=== PATIENT | female | born 1960 | race Two or more races ===

== ENCOUNTER 2021-10-07 14:31 | Emergency (ER) | payer MEDICAID, OTHER ==
[~2021-10-07] VITALS: Ht 154.9 cm; Wt 92.1 kg
[2021-10-07] MEDS ORDERED: SODIUM CHLORIDE 0.9% 1,000 ML IV ONE (14:45)
[2021-10-07 15:27] LABS: Albumin 3.9 g/dL (3.4-5.0); Calcium 9.4 mg/dL (8.5-10.1); Potassium 4.7 mmol/L (3.5-5.1)
[2021-10-07 15:29] LABS: BUN/Creatinine Ratio 19.5
[2021-10-07 15:32] LABS: Bilirubin, Total 0.3 mg/dL (0.2-1.0); Total Protein 7.6 g/dL (6.4-8.2)
[2021-10-07 15:47] LABS: Basophils # (auto) 0.1 10 ^3/uL (0-0.2); Eosinophils # (auto) 0.5 10 ^3/uL (0-0.8); Eosinophils % (auto) 3.5 % (0.0-7.0); Hematocrit 40.1 % (36.0-46.0); Hemoglobin 12.4 g/dL (12.2-16.2); Lymphocytes # (auto) 4.2 10 ^3/uL (0.4-5.4); Lymphocytes % (auto) 29.4 % (10.0-50.0); Mean Corpuscular Hemoglobin 24.1 pg (28.0-32.0); Mean Corpuscular Hgb Conc. 30.9 g/dL (32.0-36.0); Monocytes # (auto) 1.1 10 ^3/uL (0-1.3); Monocytes % (auto) 7.8 % (0.0-12.0); Neutrophils # (auto) 8.3 10 ^3/uL (1.6-8.6); Neutrophils % (auto) 58.3 % (37.0-80.0); Red Blood Cells 5.14 10^6/uL (4.0-5.20); Red Cell Distribution Width 16.9 % (11.8-14.3); White Blood Cell 14.2 10^3/uL (4.4-10.8)
[2021-10-07] MEDS ORDERED: cefTRIAXone 1GM/50ML D5W 50 ML IV ONE (20:15)
[2021-10-07 23:00] VITALS: BP 153/57
== END 2021-10-07 23:18 | disposition home or self-care (01) ==
LOC: ER 14:31
DX: E86.0 Dehydration (principal); E11.65 Type 2 diabetes mellitus with hyperglycemia; I10 Essential (primary) hypertension
CPT/HCPCS: 36415; 80053; 82962; 83036; 84484; 85025; 93005

== ENCOUNTER 2022-01-15 12:03 | Inpatient (IN) | payer MEDICAID ==
[~2022-01-15] VITALS: Ht 154.9 cm; Wt 89.9 kg
[2022-01-15 12:51] LABS: Eosinophils # (auto) 0.2 10 ^3/uL (0-0.8); Eosinophils % (auto) 1.9 % (0.0-7.0); Lymphocytes # (auto) 2.1 10 ^3/uL (0.4-5.4); Lymphocytes % (auto) 19.3 % (10.0-50.0); Monocytes # (auto) 0.6 10 ^3/uL (0-1.3)
[2022-01-15 12:57] LABS: Basophils # (auto) 0.1 10 ^3/uL (0-0.2); Basophils % (auto) 1.2 % (0.0-2.0); Hematocrit 36.5 % (36.0-46.0); Hemoglobin 11.4 g/dL (12.2-16.2); Mean Corpuscular Hemoglobin 25.2 pg (28.0-32.0); Mean Corpuscular Hgb Conc. 31.2 g/dL (32.0-36.0); Mean Corpuscular Volume 80.5 fL (80.0-100.0); Monocytes % (auto) 5.7 % (0.0-12.0); Neutrophils # (auto) 7.9 10 ^3/uL (1.6-8.6); Neutrophils % (auto) 71.9 % (37.0-80.0); Red Blood Cells 4.53 10^6/uL (4.0-5.20); Red Cell Distribution Width 15.2 % (11.8-14.3)
[2022-01-15 13:09] LABS: Albumin 3.3 g/dL (3.4-5.0); BUN/Creatinine Ratio 18.5; Potassium 4.9 mmol/L (3.5-5.1)
[2022-01-15 13:12] LABS: Bilirubin, Total 0.2 mg/dL (0.2-1.0); Total Protein 6.6 g/dL (6.4-8.2)
[2022-01-15 13:42] LABS: Urine Bacteria FEW /hpf (None Seen); Urine Blood Negative /uL (Negative); Urine Mucus FEW (None Seen); Urine Specific Gravity 1.022 (1.001-1.035); Urine WBC 2 /hpf (0 - 5)
[2022-01-15] MEDS ORDERED: cloNIDine HCL 0.1 MG TAB PO ONE (13:45)
[2022-01-15] MEDS ORDERED: MECLIZINE HCL 25 MG TAB PO ONE (13:45)
[2022-01-15] MEDS ORDERED: ENOXAPARIN SOD 100 MG/1 ML SYRINGE SC ONE (13:45)
[2022-01-15] MEDS ORDERED: ASPirin 81 mg TAB PO ONE (13:45)
[2022-01-15] MEDS ORDERED: NITROGLYCERIN 0.4 MG SL TAB SL PRN (14:45)
[2022-01-15] MEDS ORDERED: MORPHINE SULFATE INJ 2 MG/ml SYRG IV PRN (14:45)
[2022-01-15] MEDS ORDERED: cefTRIAXone 1GM/50ML D5W 50 ML IV ONE (15:00)
[2022-01-15] MEDS ORDERED: hydrALAZINE HCL 20 MG/ML VL IV PRN (15:00)
[2022-01-15] MEDS ORDERED: DEXTROSE (50%) 50ML SYRG IV PRN (15:00)
[2022-01-15 15:35] LABS: Cholesterol 185 mg/dL (< 200)
[2022-01-15 15:37] LABS: HDL Cholesterol 56 mg/dL (40-59); LDL Cholesterol 121 mg/dL (< 100); Triglycerides 93 mg/dL (< 150)
[2022-01-15] MEDS: InsuLIN REG 1unit/0.01ml Soln (100units/ml) SC SCH ×2 (17:54→21:56)
[2022-01-15] MEDS: ACCU-CHEK COMFORT CURVE STRIP VI SCH ×2 (17:56→21:52)
[2022-01-15] MEDS ORDERED: NTG 0.1MG/HR TOPICAL PATCH TD ONE (18:00)
[2022-01-15] MEDS ORDERED: PANTOPRAZOLE 40 MG/10 ML VIAL INJ IV ONE (18:00)
[2022-01-15] MEDS: ATORVASTATIN 20 MG TAB PO SCH (21:56)
[2022-01-16] VITALS (7 sets, daily range): BP systolic 106–123; BP diastolic 44–68
[2022-01-16] MEDS ORDERED: OMEP20TA PO (01:16)
[2022-01-16] MEDS ORDERED: GABA300C PO (01:16)
[2022-01-16] MEDS ORDERED: GLIP10TA9 PO (01:16)
[2022-01-16] MEDS ORDERED: LEVO175T66 PO (01:16)
[2022-01-16] MEDS ORDERED: FERR-20 PO (01:16)
[2022-01-16] MEDS ORDERED: LEVEMIR SC (01:16)
[2022-01-16] MEDS ORDERED: METF-370 PO (01:16)
[2022-01-16] MEDS ORDERED: LISI-716 PO (01:16)
[2022-01-16 05:36] LABS: Basophils # (auto) 0 10 ^3/uL (0-0.2); Neutrophils % (auto) 46.3 % (37.0-80.0); Nucleated Red Blood Cells % 0.1 %
[2022-01-16 05:37] LABS: Basophils % (auto) 0.3 % (0.0-2.0); Eosinophils # (auto) 0.4 10 ^3/uL (0-0.8); Eosinophils % (auto) 2.9 % (0.0-7.0); Hematocrit 34.9 % (36.0-46.0); Hemoglobin 10.9 g/dL (12.2-16.2); Lymphocytes # (auto) 4.8 10 ^3/uL (0.4-5.4); Lymphocytes % (auto) 39.4 % (10.0-50.0); Mean Corpuscular Hgb Conc. 31.3 g/dL (32.0-36.0); Mean Corpuscular Volume 79.9 fL (80.0-100.0); Monocytes # (auto) 1.3 10 ^3/uL (0-1.3); Monocytes % (auto) 11.1 % (0.0-12.0); Neutrophils # (auto) 5.6 10 ^3/uL (1.6-8.6); Red Blood Cells 4.37 10^6/uL (4.0-5.20); Red Cell Distribution Width 15.3 % (11.8-14.3); White Blood Cell 12.1 10^3/uL (4.4-10.8)
[2022-01-16 06:01] LABS: Albumin 2.9 g/dL (3.4-5.0); BUN/Creatinine Ratio 15.3; Bilirubin, Total 0.2 mg/dL (0.2-1.0); Total Protein 6.3 g/dL (6.4-8.2)
[2022-01-16] MEDS: ACCU-CHEK COMFORT CURVE STRIP VI SCH ×4 (06:41→22:09)
[2022-01-16] MEDS: InsuLIN REG 1unit/0.01ml Soln (100units/ml) SC SCH ×4 (06:41→22:25)
[2022-01-16] MEDS: cefTRIAXone 1GM/50ML D5W 50 ML IV SCH (08:49)
[2022-01-16] MEDS: PANTOPRAZOLE 40 MG/10 ML VIAL INJ IV SCH (09:46)
[2022-01-16] MEDS: ENOXAPARIN SOD 40 MG/0.4 ML SYRINGE SC SCH (09:46)
[2022-01-16] MEDS: ASPirin 81 mg TAB PO SCH (09:46)
[2022-01-16] MEDS: ATORVASTATIN 20 MG TAB PO SCH (22:09)
[2022-01-17 05:00] VITALS: BP 126/54
[2022-01-17] MEDS: ACCU-CHEK COMFORT CURVE STRIP VI SCH ×4 (06:20→22:00)
[2022-01-17] MEDS: InsuLIN REG 1unit/0.01ml Soln (100units/ml) SC SCH ×4 (06:23→22:00)
[2022-01-17 09:08] VITALS: BP 129/52
[2022-01-17 09:46] LABS: Free T4 (Free Thyroxine) 1.25 ng/dL (0.89-1.76); T3 Total 0.82 ng/mL (0.60-1.81)
[2022-01-17] MEDS: PANTOPRAZOLE 40 MG/10 ML VIAL INJ IV SCH (10:17)
[2022-01-17] MEDS: ENOXAPARIN SOD 40 MG/0.4 ML SYRINGE SC SCH (10:17)
[2022-01-17] MEDS: ASPirin 81 mg TAB PO SCH (10:17)
[2022-01-17] MEDS: cefTRIAXone 1GM/50ML D5W 50 ML IV SCH (10:17)
[2022-01-17 13:09] VITALS: BP 133/53
[2022-01-17 17:00] VITALS: BP 136/60
[2022-01-17 22:00] VITALS: BP 121/57
[2022-01-17] MEDS: ATORVASTATIN 20 MG TAB PO SCH (23:01)
[2022-01-18 05:00] VITALS: BP 121/54
[2022-01-18] MEDS: ACCU-CHEK COMFORT CURVE STRIP VI SCH ×4 (06:18→21:42)
[2022-01-18] MEDS: InsuLIN REG 1unit/0.01ml Soln (100units/ml) SC SCH ×4 (06:19→21:43)
[2022-01-18] MEDS: PANTOPRAZOLE 40 MG/10 ML VIAL INJ IV SCH (08:43)
[2022-01-18] MEDS: ENOXAPARIN SOD 40 MG/0.4 ML SYRINGE SC SCH (08:43)
[2022-01-18] MEDS: cefTRIAXone 1GM/50ML D5W 50 ML IV SCH (08:44)
[2022-01-18] MEDS: ASPirin 81 mg TAB PO SCH (08:44)
[2022-01-18 09:16] VITALS: BP 136/54
[2022-01-18 12:47] VITALS: BP 131/77
[2022-01-18 16:30] VITALS: BP 136/66
[2022-01-18] MEDS: ATORVASTATIN 20 MG TAB PO SCH (21:41)
[2022-01-18 22:00] VITALS: BP 146/54
[2022-01-19 05:00] VITALS: BP 129/65
[2022-01-19] MEDS: ACCU-CHEK COMFORT CURVE STRIP VI SCH (06:42)
[2022-01-19] MEDS: InsuLIN REG 1unit/0.01ml Soln (100units/ml) SC SCH (06:43)
[2022-01-19 09:00] VITALS: BP 110/58
[2022-01-19] MEDS: cefTRIAXone 1GM/50ML D5W 50 ML IV SCH (10:06)
[2022-01-19] MEDS: ASPirin 81 mg TAB PO SCH (10:06)
[2022-01-19] MEDS: PANTOPRAZOLE 40 MG/10 ML VIAL INJ IV SCH (10:06)
[2022-01-19] MEDS: ENOXAPARIN SOD 40 MG/0.4 ML SYRINGE SC SCH (10:07)
[2022-01-19] MEDS ORDERED: LEVEMIR SC (11:30)
[2022-01-19] MEDS ORDERED: ASPI-325 PO (11:33)
[2022-01-19] MEDS ORDERED: ATOR20TA50 PO (11:33)
[2022-01-19 13:00] VITALS: BP 120/84
[2022-01-19 13:38] VITALS: BP 135/58
== END 2022-01-19 15:10 | disposition home or self-care (01) | DRG 199 ==
LOC: ER 12:04 → TELE 14:41 → TELE-CENTR 22:01
PROVIDERS: ADMIT Registered Nurse; ATTEND Internal Medicine
DX: I16.0 Hypertensive urgency (principal); I21.A1 Myocardial infarction type 2; D63.8 Anemia in other chronic diseases classified elsewhere; I50.32 Chronic diastolic (congestive) heart failure; E11.9 Type 2 diabetes mellitus without complications; I11.0 Hypertensive heart disease with heart failure; N39.0 Urinary tract infection, site not specified; E03.9 Hypothyroidism, unspecified; E78.5 Hyperlipidemia, unspecified; Z20.822 Contact with and (suspected) exposure to COVID-19; E66.9 Obesity, unspecified; R00.1 Bradycardia, unspecified; H91.91 Unspecified hearing loss, right ear; I44.0 Atrioventricular block, first degree; J45.909 Unspecified asthma, uncomplicated; Z82.49 Family history of ischemic heart disease and other diseases of the circulatory system; Z79.4 Long term (current) use of insulin; Z68.37 Body mass index [BMI] 37.0-37.9, adult
CPT/HCPCS: 36415; 70450; 74176; 80053; 80061; 81001; 82962; 83036; 83690; 84439; 84443; 84480; 84484; 85025; 87086; 87426; 93005; 93306; 93886; 96365; 96366; 96375; C9113; G0378; J0696; J1815

== ENCOUNTER 2023-08-07 10:21 | Day surgery (SDC) | payer MEDICAID ==
[2023-08-07] VITALS (12 sets, daily range): BP systolic 86–131; BP diastolic 49–78; PULSE 53–59; RESP 13–22; TEMP 97.4; O2SAT 93–98
[~2023-08-07] VITALS: Ht 157.5 cm; Wt 91.2 kg
[~2023-08-07 10:21] MED LIST: ANGIOMAX 250 MG VIAL IV ONE; ASPI-325 PO; ATOR20TA50 PO; FERR325T24 PO; GABA300C PO; GLIP10TA9 PO; HEPARIN IN NS 1000Units/500mL 1,500 ML ONE; HEPARIN SODIUM (PORCINE) 5000 UNITS/ML 1ML VIAL ONE; IOHEXOL 350 MG/ML 100ML IJ ONE; LEVEMIR SC; LEVO175T4 PO; LIDOCAINE 2%HCL (LOCAL ANESTH.) INJ 10ml MDV ONE; LOSA-533 PO; MECL-90 PO; METF-370 PO; MIDAZOLAM HCL 2MG/2ML 2ml VIAL (1mg/ml) ONE; OMEP20TA PO; ONDA-155 PO; SEMA2INJ3 SC; SODIUM CHL 0.9% 0 ML ONE; VERAPAMIL 2.5MG/ML INJ 2ML VIAL IV ONE; fentaNYL CITRATE 100 MCG/2 ML VL ONE
== END 2023-08-07 12:49 | disposition home or self-care (01) ==
LOC: CATH 10:21
PROVIDERS: ATTEND Internal Medicine
DX: R94.39 Abnormal result of other cardiovascular function study (principal); I20.89 Other forms of angina pectoris; R07.9 Chest pain, unspecified; I10 Essential (primary) hypertension; E11.51 Type 2 diabetes mellitus with diabetic peripheral angiopathy without gangrene; E03.9 Hypothyroidism, unspecified; E78.00 Pure hypercholesterolemia, unspecified; Z79.84 Long term (current) use of oral hypoglycemic drugs; Z79.890 Hormone replacement therapy; Z79.899 Other long term (current) drug therapy; Z82.49 Family history of ischemic heart disease and other diseases of the circulatory system
CPT/HCPCS: 93458; C1769; C1894; J1644; J2001; J2250; J3010; Q9967; 99152